=== PATIENT | female | born 1990 | race Caucasian/White ===

== ENCOUNTER 2018-06-06 07:13 | Emergency (ER) | payer MEDICAID ==
[~2018-06-06] VITALS: Ht 170.2 cm; Wt 108.9 kg
[2018-06-06 08:09] VITALS: BP 129/73
[2018-06-06 09:07] LABS: Basophils # (auto) 0 uL; Eosinophils # (auto) 0.1 uL; Hemoglobin 9.4 g/dL (12.2-16.2); Lymphocytes # (auto) 1.9 uL; Lymphocytes % (auto) 30.1 % (10.0-50.0); Mean Corpuscular Hemoglobin 19.3 pg (28.0-32.0); Neutrophils # (auto) 3.7 uL
[2018-06-06 09:10] LABS: Basophils % (auto) 0.7 % (0.0-2.0); Hematocrit 30.8 % (36.0-46.0); Mean Corpuscular Hgb Conc. 30.4 g/dL (32.0-36.0); Monocytes # (auto) 0.6 uL; Monocytes % (auto) 8.7 % (0.0-12.0); Neutrophils % (auto) 58.5 % (37.0-80.0); Platelet Count (auto) 341 10^3/uL (140-450); Red Blood Cells 4.84 10^6/uL (4.0-5.20); Red Cell Distribution Width 17.8 % (11.8-14.3); White Blood Cell 6.4 10^3/uL (4.4-10.8)
[2018-06-06 09:13] LABS: Urine Bacteria FEW /hpf (None Seen); Urine Blood Negative /uL (Negative); Urine Mucus FEW (None Seen); Urine Specific Gravity 1.024 (1.001-1.035); Urine WBC 43 /hpf (0 - 5)
[2018-06-06 09:27] LABS: Mean Corpuscular Volume 63.7 fL (80.0-100.0)
[2018-06-06 09:31] LABS: BUN/Creatinine Ratio 16.7; Calcium 8.2 mg/dL (8.5-10.1); Potassium 4.3 mmol/L (3.5-5.1)
== END 2018-06-06 10:15 | disposition home or self-care (01) ==
LOC: ER 07:13
DX: J01.90 Acute sinusitis, unspecified (principal); N39.0 Urinary tract infection, site not specified; D64.9 Anemia, unspecified; E03.9 Hypothyroidism, unspecified; Z88.0 Allergy status to penicillin
CPT/HCPCS: 36415; 80048; 81001; 81002; 82962; 84443; 85025; 93005

== ENCOUNTER 2023-04-17 16:18 | Emergency (ER) | payer MEDICAID ==
[~2023-04-17] VITALS: Ht 170.2 cm; Wt 122.2 kg
[2023-04-17 16:24] VITALS: BP 150/81; PULSE 81; RESP 20; O2SAT 99
[2023-04-17 16:55] LABS: Basophils # (auto) 0.1 10 ^3/uL (0-0.2); Basophils % (auto) 0.7 % (0.0-2.0); Eosinophils # (auto) 0.3 10 ^3/uL (0-0.8); Hemoglobin 8.1 g/dL (12.2-16.2); Nucleated Red Blood Cells % 0.1 %
[2023-04-17 16:57] LABS: Eosinophils % (auto) 2.9 % (0.0-7.0); Hematocrit 27.9 % (36.0-46.0); Lymphocytes # (auto) 2.9 10 ^3/uL (0.4-5.4); Lymphocytes % (auto) 32.7 % (10.0-50.0); Mean Corpuscular Hemoglobin 17.2 pg (28.0-32.0); Mean Corpuscular Volume 59.4 fL (80.0-100.0); Monocytes # (auto) 0.7 10 ^3/uL (0-1.3); Monocytes % (auto) 7.7 % (0.0-12.0); Neutrophils # (auto) 5.1 10 ^3/uL (1.6-8.6)
[2023-04-17 16:58] LABS: Red Cell Distribution Width 20.5 % (11.8-14.3)
[2023-04-17 17:17] LABS: Alanine Aminotransferase 11 U/L (7-40); Albumin 4.2 g/dL (3.2-4.8); Alkaline Phosphatase 96 U/L (46-116); Anion Gap 6 (5-15); Aspartate Aminotransferase 10 U/L (13-40); BUN/Creatinine Ratio 12.2 (10.0-20.0); Bilirubin, Total 0.3 mg/dL (0.2-1.0); Blood Urea Nitrogen 10 mg/dL (9-23); Calcium 8.9 mg/dL (8.7-10.4); Carbon Dioxide 24 mmol/L (20-30); Chloride 106 mmol/L (98-107); Glucose 102 mg/dL (74-106); Potassium 4.2 mmol/L (3.5-5.1); Sodium 136 mmol/L (136-145)
[2023-04-17 18:06] LABS: Platelet Estimate Adequate
[2023-04-17 18:07] LABS: Anisocytosis Slight; Hypochromia Marked; Ovalocytes FEW
== END 2023-04-17 20:32 | disposition home or self-care (01) ==
LOC: ER 16:18
DX: O20.0 Threatened abortion (principal); R10.2 Pelvic and perineal pain; Z3A.01 Less than 8 weeks gestation of pregnancy; Z86.2 Personal history of diseases of the blood and blood-forming organs and certain disorders involving the immune mechanism; Z98.890 Other specified postprocedural states; Z88.0 Allergy status to penicillin
CPT/HCPCS: 36415; 76801; 80053; 84702; 85025

== ENCOUNTER 2024-02-03 22:46 | Emergency (ER) | payer MEDICAID ==
[~2024-02-03] VITALS: Ht 170.2 cm; Wt 120.5 kg
[2024-02-04 01:30] VITALS: TEMP 98.8
[2024-02-04 01:39] VITALS: PULSE 83; RESP 10; O2SAT 100
[2024-02-04] MEDS: GLYCOPYRROLATE 0.2 MG/ML 1ML VIAL IM ONE (01:45)
[2024-02-04 02:00] VITALS: BP 126/57; PULSE 79; RESP 18; O2SAT 100
[2024-02-04] MEDS ORDERED: ZOFR4T SL (02:56)
== END 2024-02-04 03:05 | disposition home or self-care (01) ==
LOC: ER 22:46
DX: R09.A2 Foreign body sensation, throat (principal); Z88.0 Allergy status to penicillin
CPT/HCPCS: 70360